=== PATIENT | male | born 1945 | race Caucasian/White ===

== ENCOUNTER → 2024-03-05 08:20 | Outpatient (REF) | payer OTHER, SELFPAY ==
[2024-03-05 09:46] LABS: ALT (SGPT) 21 U/L (0-50); AST (SGOT) 32 U/L (17-59); HDL Cholesterol 53 mg/dl; LDL Cholesterol, Calculated 84 mg/dl; Total Cholesterol 161 mg/dl (50-199); Triglyceride 121 mg/dl (10-149); Very Low Density Lipoprotein 24 mg/dl (0-30)
== END ==
LOC: REG 08:20
PROVIDERS: ATTENDING PHYSICIAN Internal Medicine Cardiovascular Disease; FAMILY PHYSICIAN Family Medicine
DX: E78.5 Hyperlipidemia, unspecified (principal)
CPT/HCPCS: 36415; 80061; 84450; 84460

== ENCOUNTER → 2024-07-19 08:49 | Outpatient (REF) | payer OTHER, SELFPAY ==
[2024-07-19 09:49] LABS: % Basophils 0.6 % (0-2); % Eosinophils 5.9 % (0-6); % Immature Granulocytes 0.3 % (0-0.5); % Lymphocytes 24.6 % (20.5-51.1); % Monocytes 10.3 % (1.7-9.3); % Neutrophils 58.3 % (42.2-75.2); Absolute Eosinophils 0.4 10^3/uL (0-0.7); Absolute Lymphocytes 1.7 10^3/uL (1.2-3.4); Absolute Monocytes 0.7 10^3/uL (0.1-0.6); Absolute Neutrophils 4.1 10^3/uL (1.4-6.5); Hematocrit 41.8 % (39.0-52.0); Hemoglobin 14.5 g/dL (13.0-18.0); Mean Corp Hgb Conc. 34.7 g/dL (33.0-37.0); Mean Corpuscular Hgb 30.3 pg (27.0-31.0); Mean Corpuscular Volume 87.4 fL (80.0-94.0); Mean Platelet Volume 10.3 fL (7.4-10.4); Nucleated Red Blood Cells % 0 % (-); Platelet Count 230 10^3/uL (130-400); Red Blood Cell Count 4.78 10^6/uL (4.70-6.10); Red Cell Dist. Width 11.9 % (11.5-14.5)
[2024-07-19 09:50] LABS: Urine Albumin Negative (Neg - Trace); Urine Bilirubin Negative (Negative); Urine Character Clear (Clear); Urine Color Yellow; Urine Glucose Negative (Negative); Urine Ketone Negative (Negative); Urine Leukocyte Negative (Negative); Urine Nitrite Negative (Negative); Urine Occult Blood Negative (Negative); Urine Specific Gravity 1.005 (<1.030); Urine Urobilinogen Negative (Neg - 1+)
[2024-07-19 10:26] LABS: ALT (SGPT) 22 U/L (0-50); AST (SGOT) 29 U/L (17-59); Albumin 4.3 g/dl (3.5-5.0); Alkaline Phosphatase 81 U/L (38-126); Blood Urea Nitrogen 18 mg/dl (9-20); Calcium 9.4 mg/dl (8.4-10.2); Carbon Dioxide 26 mmol/L (22-30); Chloride 104 mmol/L (98-107); Glucose 100 mg/dl (70-99); HDL Cholesterol 49 mg/dl; LDL Cholesterol, Calculated 84 mg/dl; Potassium 4.6 mmol/L (3.5-5.1); Sodium 141 mmol/L (135-145); Total Bilirubin 1.4 mg/dl (0.2-1.3); Total Cholesterol 158 mg/dl (50-199); Total Protein 6.6 g/dl (6.3-8.2); Triglyceride 125 mg/dl (10-149); Very Low Density Lipoprotein 25 mg/dl (0-30); eGFR > 60.00
[2024-07-19 10:52] LABS: TSH 2.13 uIU/ml (0.47-4.68)
[2024-07-19 11:28] LABS: Glycohemoglobin (HgbA1c) 5.5 % (4.0-5.6)
[2024-07-21 03:51] LABS: H. pylori Breath Test Negative (Negative)
== END ==
LOC: REG 08:49
PROVIDERS: ATTENDING PHYSICIAN Family Medicine
DX: I48.0 Paroxysmal atrial fibrillation (principal); E78.5 Hyperlipidemia, unspecified; R73.03 Prediabetes; E55.9 Vitamin D deficiency, unspecified; K29.60 Other gastritis without bleeding; Z86.19 Personal history of other infectious and parasitic diseases
CPT/HCPCS: 36415; 80053; 80061; 81003; 83013; 83036; 84443; 85025

== ENCOUNTER → 2024-07-27 09:26 | Outpatient (REF) | payer OTHER, SELFPAY | LOC: RAD 09:26 | PROVIDERS: ATTENDING PHYSICIAN Family Medicine; REFERRING PHYSICIAN Internal Medicine Cardiovascular Disease | DX: K29.60 Other gastritis without bleeding (principal) | CPT/HCPCS: 74246 ==

== ENCOUNTER → 2024-10-12 08:13 | Outpatient (REF) | payer OTHER, SELFPAY | LOC: HWRCS 08:13 | PROVIDERS: ATTENDING PHYSICIAN Internal Medicine Cardiovascular Disease; FAMILY PHYSICIAN Family Medicine | DX: I42.8 Other cardiomyopathies (principal); R42 Dizziness and giddiness | CPT/HCPCS: 93306 ==

== ENCOUNTER → 2025-07-21 15:16 | Outpatient (REF) | payer OTHER, SELFPAY ==
[2025-07-21 18:54] LABS: Hematocrit 45.0 % (39.0-52.0); Hemoglobin 14.6 g/dL (13.0-18.0); Mean Corp Hgb Conc. 32.4 g/dL (33.0-37.0); Mean Corpuscular Volume 92.4 fL (80.0-94.0); Nucleated Red Blood Cells % 0 % (-); Platelet Count 266 10^3/uL (130-400); Red Cell Dist. Width 12.4 % (11.5-14.5)
[2025-07-21 19:09] LABS: ALT (SGPT) 21 U/L (0-50); AST (SGOT) 29 U/L (17-59); Albumin 4.6 g/dl (3.5-5.0); Alkaline Phosphatase 85 U/L (38-126); Blood Urea Nitrogen 21 mg/dl (9-20); Calcium 9.7 mg/dl (8.4-10.2); Carbon Dioxide 26 mmol/L (22-30); Glucose 91 mg/dl (70-99); HDL Cholesterol 54 mg/dl; LDL Cholesterol, Calculated 114 mg/dl; Total Protein 7.6 g/dl (6.3-8.2); Very Low Density Lipoprotein 25 mg/dl (0-30); eGFR > 60.00
[2025-07-21 19:39] LABS: TSH 2.01 uIU/ml (0.47-4.68)
[2025-07-21 19:43] LABS: Chloride 105 mmol/L (98-107); Potassium 4.6 mmol/L (3.5-5.1); Sodium 139 mmol/L (135-145)
[2025-07-22 08:18] LABS: Glycohemoglobin (HgbA1c) 5.6 % (4.0-5.6)
== END ==
LOC: CLAB 15:16
PROVIDERS: ATTENDING PHYSICIAN Family Medicine
DX: R73.03 Prediabetes (principal); E55.9 Vitamin D deficiency, unspecified; E78.5 Hyperlipidemia, unspecified
CPT/HCPCS: 36415; 80053; 80061; 83036; 84443; 85025

== ENCOUNTER → 2025-08-31 10:58 | Outpatient (REF) | payer OTHER, SELFPAY ==
[2025-08-31 18:30] LABS: Urine Character Slightly Cloudy (Clear)
[2025-08-31 18:40] LABS: Urine Red Blood Cell >100 /HPF (0-2); Urine Squamous Cell 0-2 /LPF (Few)
== END ==
LOC: CLAB 10:58
PROVIDERS: ATTENDING PHYSICIAN Family Medicine
DX: R30.0 Dysuria (principal)
CPT/HCPCS: 81003; 81015; 87086

== ENCOUNTER 2025-09-06 18:48 | Emergency (ER) | payer OTHER, SELFPAY ==
[2025-09-06 18:50] VITALS: BP 149/69
[2025-09-06 19:17] LABS: Hematocrit 40.8 % (39.0-52.0); Hemoglobin 14.2 g/dL (13.0-18.0); Mean Corp Hgb Conc. 34.8 g/dL (33.0-37.0); Mean Corpuscular Volume 86.4 fL (80.0-94.0); Nucleated Red Blood Cells % 0 % (-); Platelet Count 264 10^3/uL (130-400); Red Cell Dist. Width 11.9 % (11.5-14.5)
[2025-09-06 19:19] LABS: Urine Character Clear (Clear)
[2025-09-06 19:37] LABS: Urine Squamous Cell 0-2 /LPF (Few)
[2025-09-06 19:37] LABS: ALT (SGPT) 17 U/L (0-50); AST (SGOT) 24 U/L (17-59); Albumin 4.3 g/dl (3.5-5.0); Alkaline Phosphatase 90 U/L (38-126); Blood Urea Nitrogen 23 mg/dl (9-20); Calcium 9.3 mg/dl (8.4-10.2); Carbon Dioxide 26 mmol/L (22-30); Chloride 102 mmol/L (98-107); Glucose 116 mg/dl (70-99); Potassium 4.2 mmol/L (3.5-5.1); Sodium 132 mmol/L (135-145); Total Protein 7.1 g/dl (6.3-8.2); eGFR > 60.00
[2025-09-06 19:38] LABS: Urine Red Blood Cell 30-40 /HPF (0-2); Urine White Cell 0-2 /HPF (0-5)
[2025-09-06 21:01] VITALS: BP 117/69; BMI 33.2
--- NOTE | 2025-09-06 21:48 | ED.GENMED ---
History of Present Illness
General
Chief Complaint: Male Genito-Urinary Symptoms
Source: patient
Time Seen by Provider: 09/06/25 20:55
History of Present Illness
History of Present Illness:
80-year-old male with past medical history of atrial fibrillation status post ablation, hypertension, hyperlipidemia presenting to the emergency department for evaluation of hematuria that has been waxing and waning for 1 week. At onset of symptoms
patient initially went to his primary care provider who ordered some blood work and a urinalysis and started the patient on levofloxacin for which she has 3 days left. Symptoms seem to be improving however tonight started with more significant
hematuria which is why he came to the emergency department. Patient does have a office visit scheduled with urologist, Dr. Araujo, he has never seen urology in the past. Patient denies any urinary frequency, urgency, dysuria, back or flank pain,
nausea or vomiting, chest pain or shortness of breath. Patient is on Xarelto which she takes at nighttime for his history of atrial fibrillation.
Past History
Past History
ED Past Medical History: Arrthythmia (A. fib), HTN and Hypercholesterolemia
ED Past Surgical History: Cardiac
Social History
Tobacco: Non-smoker
Alcohol: None
Drug: None
Personal:
Living: with family
Employment: Retired
Review of Systems
Review of Systems
All Other Systems: ROS reviewed and negative except as documented in HPI and ROS
Phy Exam
Physical Exam
Physical Exam:
GENERAL: Alert , in no apparent distress
EYE: clear conjunctiva b/l
HEAD: NCAT
ENT: o/p clr, mmm.
CARDIAC: Regular rate and rhythm .
LUNGS: Clear breath sounds bilaterally, no acute respiratory distress, no wheezes/rales/rhonchi
ABDOMEN: Soft, without focal tenderness, no r/g, no cvat
NEUROLOGICAL: Alert and oriented
SKIN: Warm and dry, skin intact.
MUSCULOSKELETAL: well perfused.
PSYCH: Normal and appropriate interaction.
Scores
Heart Failure Risk
Heart Failure Risk Score: Not Applicable
Heart Score for Chest Pain Patients
STEMI patient?: Not applicable
Withdrawal Assessment of Alcohol
Withdrawal Assessment Completed?: Not applicable
Course
Orders/Labs/Results
Orders:
Orders
09/06/25 18:59
Complete Blood Count/With Diff Urgent
Comprehensive Metabolic Panel Urgent
09/06/25 19:02
Urinalysis Reflex To Culture Urgent
Date Specimen was Collected: 09/06/25
Time Specimen was Collected: 18:53
Urine Microscopic Reflex Cult Urgent
09/06/25 20:55
CT Abd/pelvis W Iv Cont Urgent
Comment:
Reason For Exam: hematuria, on xarelto
Abnormal Lab Results
09/06/25 09/06/25
18:59 19:02
Absolute Monos (auto) 1.2 H 10^3/uL
(0.1-0.6)
Monocytes % 12.0 H %
(1.7-9.3)
Sodium 132 L mmol/L
(135-145)
BUN 23 H mg/dl
(9-20)
Glucose 116 H mg/dl
(70-99)
Ur Occult Blood Reflex 4+ A
(Negative)
Urine RBC 30-40 A /HPF
(0-2)
Urine Bacteria (Reflex) Few A
(Negative)
Urine Albumin (Reflex) 1+ A
(Neg - Trace)
09/06/25 18:59
09/06/25 18:59
Vital Signs
Initial and Last Documented VS:
Initial Vital Signs
Temp Pulse Resp BP Pulse Ox
98.0 F 59 19 149/69 98
09/06/25 18:50 09/06/25 18:50 09/06/25 18:50 09/06/25 18:50 09/06/25 18:50
Last Documented Vital Signs
Temp Pulse Resp BP Pulse Ox
98.0 F 62 18 117/69 100
09/06/25 18:50 09/06/25 21:02 09/06/25 21:02 09/06/25 21:01 09/06/25 21:52
MDM/Problems Addressed
Differential Diagnosis Includes:
Malignancy
UTI/Cystitis
Kidney stone
Anemia
PAOLA
MDM/Problems Addressed:
80-year-old male presenting to the ER for evaluation of painless hematuria, symptoms ongoing for 1 week, initially improved with levofloxacin which was prescribed by primary care provider. Symptoms worse tonight prompting him to come to the
emergency department. Patient without any fevers or infectious symptoms. Otherwise hemodynamically stable. Labs and urine have been ordered from triage, no signs of anemia. CT scan ordered. Anticipate continued need for outpatient follow-up and
likely cystoscopy as an outpatient with urology.
Chronic conditions affecting care: Arrhythmia
*Radiology
Radiology exam reviewed: radiology read reviewed
*Pulse Oximetry
SaO2: 100
Oxygen Mode of Delivery: Room air
Patient hypoxic: no
*Critical Care Note
Total Time (30-74mins, 75-104mins- exclusive of procedures): Not Applicable
Patient Management
Discussion with other providers: PCP
Escalation/DeEscalation of care consider admission/obs:
Patient CT scan as follows:
IMPRESSION:
1. Mild diffuse urinary bladder wall thickening and trabeculation. Diagnostic possibilities are (1) chronic urinary bladder outlet obstruction or (2) acute cystitis.
2. Moderately enlarged prostate gland.
3. 2 mm nonobstructing right lower pole intrarenal calculus.
4. Mild chronic bilateral renal disease.
5. Severe colonic diverticulosis.
6. 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
7. 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
I notified patient's primary care provider of these results. Patient will continue taking the levofloxacin that was prescribed to him by the primary care provider. I continue to encourage patient to follow-up with urology as he will still likely
need cystoscopy to rule out any other potential causes including malignancy primary care is aware of these findings, discussed via [place] text. He will follow-up with the patient tomorrow morning and attempt to move the patient's appointment up with
urology.
ED Attending Note
-
Portions of this chart may have been created with voice recognition software.� Occasional wrong word or��sound alike� substitutions may have occurred due to the inherent limitations of voice recognition software.
Discharge Plan
Departure
Patient Disposition: Home (Routine Discharge)
Date of Disposition: 09/06/25
Time of Disposition: 22:48
Patient with high blood pressure during this ER visit?: No
Discharge Problem:
Hematuria
Instructions: Blood in the Urine (Hematuria), Adult (DC)
Prescriptions:
No Action
atorvastatin 10 MG tablet
10 mg PO [id number]
carvedilol 3.125 MG tablet
3.125 mg PO BID
pantoprazole [Protonix] 20 MG tablet,delayed release (DR/EC)
20 mg PO DAILY
lisinopril 2.5 MG tablet
2.5 mg PO DAILY
rivaroxaban [Xarelto] 20 MG tablet
20 mg PO QPM
cephalexin 500 mg capsule
500 mg PO QID 7 Days Qty: 28 0RF
Referrals:
UNKNOWN - PT DOES,NOT KNOW [Unknown Provider]
Interventions
Interventions:
*Risk Screen - Suicide Last Done: 09/06/25 18:53
*General Assessment Last Done: 09/06/25 18:53
*Neglect/Abuse Screening Last Done: 09/06/25 18:53
*ED- Fall Risk Assessment Last Done: 09/06/25 20:59
*ED COVID-19 Vaccine History Last Done: 09/06/25 18:53
*ED Influenza Vaccine History Last Done: 09/06/25 18:53
*Nursing Disposition Last Done: 09/06/25 22:56
ED-Male Genitourinary Assessment Last Done: 09/06/25 21:03
Discharge Date and Time
Discharge Date/Time: 09/06/25 22:59
Print Language: CZECH
== END 2025-09-06 22:59 | disposition home or self-care (01) ==
LOC: EMR 18:48
PROVIDERS: Emergency Medicine; EMERGENCY PHYSICIAN Emergency Medicine; FAMILY PHYSICIAN Family Medicine
DX: R31.9 Hematuria, unspecified (principal); I48.91 Unspecified atrial fibrillation; I10 Essential (primary) hypertension; E78.00 Pure hypercholesterolemia, unspecified; Z79.01 Long term (current) use of anticoagulants
CPT/HCPCS: 99284; 74177; 80053; 81003; 81015; 85025; Q9967

== ENCOUNTER → 2025-10-21 08:37 | Outpatient (REF) | payer OTHER, SELFPAY ==
[2025-10-21 09:43] LABS: Blood Urea Nitrogen 16 mg/dl (9-20); Calcium 9.0 mg/dl (8.4-10.2); Carbon Dioxide 23 mmol/L (22-30); Chloride 106 mmol/L (98-107); Glucose 99 mg/dl (70-99); Potassium 4.5 mmol/L (3.5-5.1); Sodium 136 mmol/L (135-145); eGFR > 60.00
== END ==
LOC: REG 08:37
PROVIDERS: ATTENDING PHYSICIAN Internal Medicine Cardiovascular Disease; FAMILY PHYSICIAN Family Medicine
DX: I48.0 Paroxysmal atrial fibrillation (principal)
CPT/HCPCS: 36415; 80048